=== PATIENT | female | born 1980 | race Caucasian/White ===

== ENCOUNTER 2016-10-06 07:23 | Emergency (ER) | payer BC, OTHER ==
[2016-10-06 07:53] LABS: ABSOLUTE EOSINOPHILS # (AUTO) 0.1 10^3/uL (0.0-0.6); ABSOLUTE LYMPHOCYTES (AUTO) 1.8 10^3/uL (0.5-4.7); ABSOLUTE MONOCYTES (AUTO) 0.3 10^3/uL (0.1-1.4); ABSOLUTE NEUT (AUTO) 5.4 10^3/uL (1.7-8.2); BASOPHILS % (AUTO) 0.6 % (0-2); EOSINOPHILS % (AUTO) 1.2 % (0-6); HEMATOCRIT 40.1 % (36.0-47.0); HEMOGLOBIN 13.7 g/dL (12.0-15.5); LYMPHOCYTES % (AUTO) 23.8 % (13-45); MEAN CORPUSCULAR HEMOGLOBIN 32.3 pg (27.0-33.4); MEAN CORPUSCULAR HGB CONC 34.3 g/dL (32.0-36.0); MEAN CORPUSCULAR VOLUME 94 fl (80-97); RED BLOOD COUNT 4.25 10^6/uL (3.72-5.28); RED CELL DISTRIBUTION WIDTH 12.9 % (11.5-14.0); SEGMENTED NEUTROPHILS % (AUTO) 70.4 % (42-78); WHITE BLOOD COUNT 7.7 10^3/uL (4.0-10.5)
[2016-10-06 08:11] LABS: ALANINE AMINOTRANSFERASE 24 U/L (9-52); ALBUMIN 3.9 g/dL (3.5-5.0); ALKALINE PHOSPHATASE 87 U/L (38-126); ANION GAP 9 (5-19); ASPARTATE AMINO TRANSFERASE 21 U/L (14-36); BILIRUBIN,TOTAL 0.5 mg/dL (0.2-1.3); BLOOD UREA NITROGEN 13 mg/dL (7-20); CALCIUM 9.5 mg/dL (8.4-10.2); CARBON DIOXIDE 21 mmol/L (22-30); CHLORIDE 110 mmol/L (98-107); CREATINE KINASE 66 U/L (30-135); CREATININE RESULT 0.72 mg/dL (0.52-1.25); GLUCOSE 101 mg/dL (75-110); POTASSIUM 4.1 mmol/L (3.6-5.0); SODIUM 140.4 mmol/L (137-145); TOTAL PROTEIN 6.7 g/dL (6.3-8.2)
[2016-10-06 08:23] LABS: CREATINE KINASE MB < 0.22 ng/mL (<4.55); TROPONIN I < 0.012 ng/mL
[2016-10-06] MEDS ORDERED: KETOROLAC TROMETHAMINE INJ/PF 30 MG/1 ML SDV IV ONE (08:35)
--- NOTE | 2016-10-06 08:40 | ER Document Report ---
ED Cardiac - General Mode of Arrival: Ambulatory Information source: Patient TRAVEL OUTSIDE OF THE [place] IN LAST 30 DAYS: No - HPI Patient complains to provider of: Chest pain Chest pain location: Substernal Associated symptoms: Other - see above <CHELSEY DE PAZ - Last Filed: 10/06/16 08:34> <KAY PAYAN - Last Filed: 10/06/16 09:15> - General Chief Complaint: Chest Pain Stated Complaint: CHEST PAIN Notes: 36 year old female with no history of cardiac disease presents to the ED via EMS after having substernal chest pain while taking a shower this morning at around 0600. Patient reports that she has had 1 episode of chest pain that lasted a few minutes "several months ago", but it resolved on its own. Patient took 324mg Aspirin prior to arrival. Patient is currently complaining of chest pain and mild pain with breathing. Patient's paternal grandfather had an IA in his 40s, her paternal grandmother developed coronary artery disease in her 60s, and both maternal grandparents developed coronary artery disease in their 50- 60s. Patient's father is alive at 62 years of age with hypertension. Patient is currently taking Maliha, spironolactone, and Zyrtec. (CHELSEY DE PAZ) - Related Data Allergies/Adverse Reactions: Latex, Natural Rubber Allergy (Verified 10/06/16 08:03) levofloxacin [From Levaquin] Allergy (Verified 10/06/16 08:03) pneumococcal 7-valent conjugate to [From Prevnar] Allergy (Verified 10/06/16 08: 03) Sulfa (Sulfonamide Antibiotics) Allergy (Verified 10/06/16 08:03) Past Medical History - General Information source: Patient - Social History Smoking Status: Never Smoker Chew tobacco use (# tins/day): No Frequency of alcohol use: Rare Family History: CAD - Paternal Grandfather in 40s. Paternal Grandmother in 60s. Maternal grandfather and grandmother in 50-60s., Hypertension - Father (62 years of age; alive), Other - Paternal grandfather had IA in 40s. Patient has suicidal ideation: No Patient has homicidal ideation: No Pulmonary Medical History: Reports: Hx Asthma Renal/ Medical History: Reports: Other - PCOS. Denies: Hx Peritoneal Dialysis Past Surgical History: Reports: Hx Orthopedic Surgery - knee scope - Immunizations Hx Diphtheria, Pertussis, Tetanus Vaccination: Yes <CHELSEY DE PAZ - Last Filed: 10/06/16 08:34> Review of Systems - Review of Systems Constitutional: No symptoms reported EENT: No symptoms reported Cardiovascular: See HPI, Chest pain - substernal Respiratory: See HPI, Hurts to breathe Gastrointestinal: No symptoms reported Genitourinary: No symptoms reported Female Genitourinary: No symptoms reported Musculoskeletal: No symptoms reported Skin: No symptoms reported Hematologic/Lymphatic: No symptoms reported Neurological/Psychological: No symptoms reported -: Yes All other systems reviewed and negative <ZANDRACHELSEY - Last Filed: 10/06/16 08:34> Physical Exam - General General appearance: Alert In distress: None - HEENT Head: Normocephalic, Atraumatic Eyes: Normal Extraocular movements intact: Yes Pupils: PERRL - Respiratory Respiratory status: No respiratory distress Chest status: Other - Pectus Excavatum Breath sounds: Normal Chest palpation: Tender - Lower sternum is tender to palpate - Cardiovascular Rhythm: Regular Heart sounds: Normal auscultation - Abdominal Inspection: Normal Distension: No distension Tenderness: Nontender - Back Back: Normal - Extremities General upper extremity: Normal inspection, Normal ROM General lower extremity: Normal inspection, Normal ROM - Neurological Neuro grossly intact: Yes Cognition: Normal Orientation: AAOx4 Renetta Coma Scale Eye Opening: Spontaneous Renetta Coma Scale Verbal: Oriented [place] Coma Scale Motor: Obeys Commands Renetta Coma Scale Total: 15 Speech: Normal - Psychological Associated symptoms: Normal affect, Normal mood - Skin Skin Temperature: Warm Skin Moisture: Dry Skin Color: Normal <DE PAZCHELSEY - Last Filed: 10/06/16 08:34> Course - Laboratory Result Diagrams: 10/06/16 07:43 10/06/16 07:43 <ZANDRACHELSEY - Last Filed: 10/06/16 08:34> - Laboratory Result Diagrams: 10/06/16 07:43 10/06/16 07:43 - Diagnostic Test Radiology reviewed: Image reviewed, Reports reviewed - Chest x-ray is unremarkable - EKG Interpretation by Oh EKG shows normal: Sinus rhythm, [place], Intervals, QRS Complexes, ST-T Waves Rate: Normal - 74 Rhythm: Arrthymia When compared to previous EKG there are: Previous EKG unavailable <KAY PAYAN - Last Filed: 10/06/16 09:15> - Re-evaluation Re-evalutation: 10/06/16 09:10 Chest x-ray is unremarkable, EKG is normal, d-dimer is negative as are the cardiac enzymes. Pain is reproducible with palpation and deep breath and cough. (KAY PAYAN) - Vital Signs Vital signs: Temp Pulse Resp BP Pulse Ox 98.3 F 78 18 129/83 H 99 10/06/16 07:52 10/06/16 07:52 10/06/16 07:52 10/06/16 07:52 10/06/16 07:52 - Laboratory Laboratory results interpreted by me: 10/06/16 07:43 Chloride 110 H Carbon Dioxide 21 L Discharge <CHELSEY DE PAZ - Last Filed: 10/06/16 08:34> <KAY PAYAN - Last Filed: 10/06/16 09:15> - Discharge Clinical Impression: Chest wall pain Condition: Stable Disposition: HOME, SELF-CARE Additional Instructions: Chest Pain of Unclear Cause: The exact cause of your chest pain isn't clear. Fortunately, there is no evidence of a dangerous medical condition. Further testing may be required to find the source of the pain. Most often, we find that this pain is coming from the chest wall -- the muscles or rib joints in the chest. But chest pain can come from the lung and lung lining, the esophagus, the heart valves or heart lining, and even the stomach or gallbladder. Rest. Eat lightly until the pain is gone. Take Tylenol and Motrin for pain and inflammation. You should call the physician immediately if the pain radiates to the shoulder, jaw or arms; if you start to run a fever or develop a cough; or if you develop shortness of breath, or other new or alarming symptoms. Referrals: EVELYNE BELCHER MD [Primary Care Provider] - Follow up as needed Scribe Attestation: 10/06/16 09:15 I personally performed the services described in the documentation, reviewed and edited the documentation which was dictated to the scribe in my presence, and it accurately records my words and actions. (KAY PAYAN) Scribe Documentation - Scribe Written by Scribe:: Leslie Means, 10/06/2016 0844 acting as scribe for :: Meg <CHELSEY DE PAZ - Last Filed: 10/06/16 08:34>
[2016-10-06 09:22] VITALS: BP 132/77
--- NOTE | 2016-10-06 11:15 | EKG REPORT ---
SEVERITY:- BORDERLINE ECG - SINUS ARRHYTHMIA, RATE 55-82 INFERIOR Q WAVES, PROBABLY NORMAL VARIATION : Confirmed by: Marco Atwood 06-Oct-2016 11:14:09
== END 2016-10-06 09:28 | disposition home or self-care (01) ==
LOC: ER 07:23
DX: R07.81 Pleurodynia (principal); R07.9 Chest pain, unspecified; Z88.7 Allergy status to serum and vaccine; Z88.2 Allergy status to sulfonamides; Z91.040 Latex allergy status; Z79.3 Long term (current) use of hormonal contraceptives
CPT/HCPCS: 93005; 99285; 96374; 36415; 82553; 82550; 85025; 80053; 84484; 85379; 71010; 93010; J1885

== ENCOUNTER → 2017-12-28 | Outpatient (CLI) | payer OTHER ==
--- NOTE | 2017-12-29 08:39 | XCELERA REPORT ---
[address] [address] Lower Extremity Venous Evaluation Name: JASON HILLIARD Age: 37 yrs Gender: Female : 1980 Patient Status: Outpatient Patient Location: Study Date: 12/28/2017 05:13 PM Procedure: Color flow and duplex imaging of the veins of the left lower extremity as well as the right Common Femoral vein. Reason For Study: LLE PAIN Ordering Physician: EVELYNE BELCHER Performed By: Courtney Vail Right Sided Venous Evaluation The right common femoral vein is fully compressible. Spontaneous and phasic flow is present in the right common femoral vein. Left Sided Venous Evaluation Normal vessel filling wall to wall, compression and augmentation as well as Colour flow down to the infrageniculate veins. Interpretation Summary No duplex evidence of DVT or obstruction in the left lower extremity nor in the right Common Femoral vein. : EVELYNE BELCHER > Ramiro Díaz
== END ==
LOC: SP 16:35
PROVIDERS: ATTEND Internal Medicine
DX: M79.605 Pain in left leg (principal)
CPT/HCPCS: 93971

== ENCOUNTER 2017-12-31 19:03 | Emergency (ER) | payer OTHER ==
--- NOTE | 2017-12-31 19:26 | ER Document Report ---
HPI - HPI Pain Level: 3 Context: Patient is a 37-year-old female presents emergency room with a chief complaint of pyuria, hematuria, urgency and frequency that started today. Patient states that she has had intermittent nausea over the past couple of days followed by the symptoms started this morning. She denies any associated fever, chills, flank pain any change in bowel habits. Menstrual period was December 26. Otherwise denies any previous history of hysterectomy, tubal ligation. Patient has allergies to Levaquin and sulfa. - URINARY Urinary: REPORTS: Urgency, Frequency Past Medical History - Social History Smoking Status: Unknown if Ever Smoked Family History: CAD - Paternal Grandfather in 40s. Paternal Grandmother in 60s. Maternal grandfather and grandmother in 50-60s., Hypertension - Father (62 years of age; alive), Other - Paternal grandfather had MT in 40s. Patient has suicidal ideation: No Patient has homicidal ideation: No Pulmonary Medical History: Reports: Hx Asthma Renal/ Medical History: Denies: Hx Peritoneal Dialysis Past Surgical History: Reports: Hx Orthopedic Surgery - knee scope - Immunizations Hx Diphtheria, Pertussis, Tetanus Vaccination: Yes Vertical Provider Document - CONSTITUTIONAL Agree With Documented VS: Yes Notes: PHYSICAL EXAM GENERAL: Alert, interacts well. LUNGS: Clear to auscultation bilaterally, no wheezes, rales, or rhonchi. No respiratory distress. HEART: Regular rate and rhythm. No murmurs, gallops, or rubs. ABDOMEN: Soft, nondistended, suprapubic tenderness. No guarding, rebound, or rigidity.. Bowel sounds present in all 4 quadrants. BACK: left CVA tenderness EXTREMITIES: Moves all 4 extremities spontaneously. No edema. No cyanosis. NEUROLOGICAL: Alert and oriented x4. Normal speech. PSYCH: Normal affect, normal mood. SKIN: Warm, dry, normal turgor. No rashes or lesions noted. - INFECTION CONTROL TRAVEL OUTSIDE OF THE [place] IN LAST 30 DAYS: No Course - Re-evaluation Re-evalutation: 12/31/17 20:02 I did go over the results with the patient and after asking her if she has a history of kidney stones or any other issues, patient admits that she does have a known atrophic kidney on the left flank. Given that she has left flank tenderness on the side will pursue with labs and imaging to rule out any concerns for obstruction. 12/31/17 21:[address] without any evidence of hydronephrosis or concern for obstruction. Labs benign without any concerns for sepsis or acute renal failure. Discharge home on p.o. antibiotics strict return precautions. Patient agreeable to plan stable for discharge home. - Vital Signs Vital signs: Temp Pulse Resp BP Pulse Ox 98.6 F 104 H 18 130/81 H 98 12/31/17 19:09 12/31/17 19:09 12/31/17 19:09 12/31/17 19:09 12/31/17 19:09 - Laboratory Result Diagrams: 12/31/17 20:14 12/31/17 20:14 Discharge - Discharge Clinical Impression: Pyelonephritis Condition: Good Disposition: HOME, SELF-CARE Additional Instructions: PYELONEPHRITIS: Your evaluation shows evidence of pyelonephritis. This is an infection in the kidney. Typical symptoms are fever, pain in the flank, pain on urination, and frequent urination. Many cases of pyelonephritis can be treated at home. Hospital care may be necessary for patients who are very ill, or elderly or . Pyelonephritis is treated with antibiotics. Be sure to take all the medication as prescribed. Drink plenty of liquids (about three quarts per day) . You may take acetaminophen for fever. You should feel significantly improved within two days. You should have a recheck of your urine in about one week to insure that the infection is gone. Return for a re-examination if your symptoms worsen in any way -- such as high fever, shaking chills, severe weakness or dizziness, severe pain, or inability to pass your urine. ANTINAUSEA MEDICATION: You have been given a medication to suppress nausea and vomiting. This type of medication can be given as a shot, pill, or suppository. It will usually last for many hours. Pills and shots usually last six to eight hours, suppositories last about 12 hours. For the typical illness, only one or two doses of the medication may be necessary. Mild lightheadedness may occur. This type of medicine can cause drowsiness. Do not drive or operate dangerous machinery while under its influence. Do not mix with alcohol. See your doctor at once if you have muscle spasms or tightness, or uncontrollable motions (particularly of the neck, mouth, or jaw). Persistent vomiting or severe lightheadedness should also be evaluated by the physician. ANTIBIOTIC THERAPY: You have been given an antibiotic prescription. It's important that you take all the medication, unless instructed otherwise by your physician. Failure to complete the entire course can result in relapse of your condition. Common side effects of antibiotics include nausea, intestinal cramping, or diarrhea. Women may develop vaginal yeast infections, and babies can get yeast (thrush) in the mouth following the use of antibiotics. Contact your physician if you develop significant side effects from this medication. Allergy to this antibiotic can result in hives, wheezing, faintness, or itching. If symptoms of allergy occur, stop the medication and call the doctor. ROCEPHIN: You have been given an injection of an antibiotic called Rocephin ( ceftriaxone). Sometimes the injection must be combined with antibiotic pills. For some infections, such as an uncomplicated ear infection, Rocephin provides all the antibiotic that's needed. The antibiotic will be in your body for about two days. For serious infections, we usually repeat doses of Rocephin daily. Side effects are very unusual following a shot. Women may develop vaginal yeast infections, and babies can get yeast (thrush) in the mouth following the use of antibiotics. Contact your physician if you have symptoms with this medication. Allergy to this antibiotic can result in hives, wheezing, faintness, or itching. If symptoms of allergy occur, call the doctor at once. CEPHALEXIN: The antibiotic you've been prescribed is a member of the cephalosporin class. This type of antibiotic covers a wide variety of infections, including those of the skin, lungs, and urinary tract. It's useful for staph infections. This antibiotic is slightly similar to the penicillin family. In rare cases , a person who is allergic to penicillin will also be allergic to this medication. If you have had a severe allergic reaction to penicillin, and have not taken this antibiotic since that time, notify your doctor. Antibiotics which cover many germs ("broad spectrum" antibiotics) are more likely to cause diarrhea or "yeast" infections. Women prone to vaginal yeast problems may suffer an attack after taking this antibiotic. In infants, oral thrush (white spots "stuck" on the cheek) or yeast diaper rash may result. See your doctor if these problems occur. Call at once if you develop itching, hives , shortness of breath, or lightheadedness. USE OF ACETAMINOPHEN (Tylenol): Acetaminophen may be taken for pain relief or fever control. It's much safer than aspirin, offering a wider range of "safe" dosages. It is safe during . Some brand names are Tylenol, Panadol, Datril, Anacin 3, Tempra, and Liquiprin. Acetaminophen can be repeated every four hours. The following are maximum recommended dosages: >89 pounds or adults 650 mg to 900 mg Acetaminophen can be repeated every four hours. Maximum dose not to exceed 4000 mg a day. FOLLOW-UP CARE: If you have been referred to a physician for follow-up care, call the physician s office for an appointment as you were instructed or within the next two days. If you experience worsening or a significant change in your symptoms, notify the physician immediately or return to the Emergency Department at any time for re-evaluation. Prescriptions: Cephalexin Monohydrate [Keflex 500 mg Capsule] 500 mg PO BID 14 Days capsule Ondansetron [Zofran Odt 4 mg Tablet] 1 - 2 tab PO Q4H PRN #15 tab.rapdis PRN Reason: For Nausea/Vomiting Referrals: EVELYNE BELCHER MD [Primary Care Provider] - Follow up in 3-5 days
[2017-12-31 19:33] LABS: AMORPHOUS SEDIMENT,URINE TRACE /HPF; APPEARANCE,URINE CLOUDY; BILIRUBIN,URINE NEGATIVE (NEGATIVE); COLOR,URINE YELLOW; GLUCOSE, URINE NEGATIVE (NEGATIVE); KETONES,URINE NEGATIVE (NEGATIVE); LEUKOCYTE ESTERASE,URINE MODERATE (NEGATIVE); NITRITE,URINE POSITIVE (NEGATIVE); PROTEIN,URINE 100 mg/dL (NEGATIVE); URINE SPECIFIC GRAVITY 1.023; UROBILINOGEN,URINE NEGATIVE mg/dL (<2.0)
[2017-12-31] MEDS ORDERED: CEPHALEXIN 500 MG CAPSULE PO ONE (19:44)
[2017-12-31] MEDS ORDERED: ONDANSETRON 4 MG TAB.RAPDIS PO ONE (19:44)
[2017-12-31] MEDS ORDERED: PHENAZOPYRIDINE HCL 200 MG TABLET PO ONE (19:44)
[2017-12-31 20:31] LABS: ABSOLUTE BASOPHILS # (AUTO) 0.1 10^3/uL (0.0-0.2); ABSOLUTE EOSINOPHILS # (AUTO) 0.2 10^3/uL (0.0-0.6); ABSOLUTE LYMPHOCYTES (AUTO) 2.2 10^3/uL (0.5-4.7); ABSOLUTE MONOCYTES (AUTO) 0.6 10^3/uL (0.1-1.4); ABSOLUTE NEUT (AUTO) 9.5 10^3/uL (1.7-8.2); BASOPHILS % (AUTO) 0.6 % (0-2); EOSINOPHILS % (AUTO) 1.5 % (0-6); HEMATOCRIT 42.8 % (36.0-47.0); HEMOGLOBIN 14.6 g/dL (12.0-15.5); LYMPHOCYTES % (AUTO) 17.2 % (13-45); MEAN CORPUSCULAR HEMOGLOBIN 31.7 pg (27.0-33.4); MEAN CORPUSCULAR HGB CONC 34.1 g/dL (32.0-36.0); MEAN CORPUSCULAR VOLUME 93 fl (80-97); MONOCYTES % (AUTO) 4.8 % (3-13); PLATELET COUNT 262 10^3/uL (150-450); RED CELL DISTRIBUTION WIDTH 12.6 % (11.5-14.0); SEGMENTED NEUTROPHILS % (AUTO) 75.9 % (42-78); TOTAL CELLS COUNTED % (AUTO) 100 %; WHITE BLOOD COUNT 12.5 10^3/uL (4.0-10.5)
[2017-12-31 20:57] LABS: ANION GAP 10 (5-19); BLOOD UREA NITROGEN 19 mg/dL (7-20); CALCIUM 9.7 mg/dL (8.4-10.2); CARBON DIOXIDE 27 mmol/L (22-30); CHLORIDE 108 mmol/L (98-107); GLUCOSE 86 mg/dL (75-110)
[2017-12-31] MEDS ORDERED: CEFTRIAXONE 1 GM/D5W RTU 1 GM/50 ML RTUPB IV ONE (21:00)
--- NOTE | 2017-12-31 21:06 | RADIOLOGY REPORT (SQ) ---
EXAM DESCRIPTION: CT ABD/PELVIS NO ORAL OR IV COMPLETED DATE/TIME: 12/31/2017 8:24 pm REASON FOR STUDY: left flank pain, h/o atrophic kidney, pyelo . Left flank pain for a few months, w orse in the last 3-4 days. COMPARISON: None. TECHNIQUE: CT scan of the abdomen and pelvis performed without intravenous or oral contrast. Images reviewed with lung, soft tissue, and bone windows. Reconstructed coronal and sagittal MPR images revi ewed. All images stored on PACS. All CT scanners at this facility use dose modulation, iterative reconstruction, and/or weight based d osing when appropriate to reduce radiation dose to as low as reasonably achievable (ALARA). [facility]: Dose Right [facility]: CareDose [facility]: Dose Right [facility]: Teradose 4D [facility]: Smart [employer] RADIATION DOSE: CT Rad equipment meets quality standard of care and radiation dose reduction techniq ues were employed. CTDIvol: 10.8 mGy. DLP: 561 mGy-cm.mGy. LIMITATIONS: None. FINDINGS: LOWER CHEST: No consolidation or pleural effusion. NON-CONTRASTED LIVER, SPLEEN, ADRENALS: Evaluation limited by lack of IV contrast. No identified sign ificant masses. PANCREAS: No peripancreatic inflammatory changes. GALLBLADDER: No identified stones by CT criteria. No inflammatory changes to suggest cholecystitis. RIGHT KIDNEY AND URETER: Assessment for masses limited by lack of IV contrast. No significant calci fications. No hydronephrosis or hydroureter. LEFT KIDNEY AND URETER: The left kidney is atrophic. Fluid density lesions at the left kidney measur ing up to 2.5 cm, may represent cysts. No significant calcifications. No hydronephrosis or hydrou reter. AORTA AND RETROPERITONEUM: No abdominal aortic aneurysm. No retroperitoneal masses or hemorrhage. BOWEL AND PERITONEAL CAVITY: No dilated bowel loops or inflammatory changes. No free fluid. APPENDIX: Not visualized. PELVIS, BLADDER, AND ABDOMINAL WALL:The uterus is present. The urinary bladder is decompressed. No free fluid. There is a small fat containing umbilical hernia. BONES: No significant findings. IMPRESSION: No hydronephrosis or urinary tract calculi. Atrophic left kidney with renal cysts. Oth erwise, no acute findings within the abdomen or pelvis on unenhanced CT. COMMENT: Quality ID # [id number]: Final reports with documentation of one or more dose reduction techniques (e.g., Automated exposure control, adjustment of the mA and/or kV according to patient size, use of iterative reconstruction technique) TECHNICAL DOCUMENTATION: JOB ID: [id number] [employer]- All Rights Reserved Reading location - IP/workstation name: [email or web address]
[2017-12-31 21:32] VITALS: BP 124/84
== END 2017-12-31 21:30 | disposition home or self-care (01) ==
LOC: ER 19:03
DX: N12 Tubulo-interstitial nephritis, not specified as acute or chronic (principal); R31.9 Hematuria, unspecified; R11.0 Nausea; N26.1 Atrophy of kidney (terminal); J45.909 Unspecified asthma, uncomplicated; Z88.1 Allergy status to other antibiotic agents; Z88.2 Allergy status to sulfonamides
CPT/HCPCS: 99284; 96365; 36415; 85025; 81025; 80048; 81001; 74176; S0119; J3490; J0696